=== PATIENT | female | born 1955 | race Caucasian/White ===

== ENCOUNTER → 2021-01-18 | Day surgery (SDC) | payer MEDICARE, OTHER ==
[~2021-01-18] VITALS: Ht 162.6 cm; Wt 99.8 kg
[~2021-01-18] MED LIST: ACETAMINOPHEN325 MG PO; AMITRIPTYLINE 550 MG PO; AMITRIPTYLINE H25 MG PO; ASPIR 8181 MG PO; ASPIRIN EC325 MG PO; ATORVASTATIN CA40 MG PO; CERTAGEN1 EACH PO; CILOSTAZOL100 MG PO; COREG 3.125M3.125 MG PO; EFFIENT10 MG PO; FEOSOL325 MG PO; FLEXERIL10 MG PO; IBUPROFEN800 MG PO; LASIX20 MG PO; LAXATIVE OF CHOICE PO; LEG CRAMPS PO; MIRAPEX1 MG PO; NEURONTIN800 MG PO; NEXIUM40 MG PO; NORCO 5-325 TA1 EACH PO; NORVASC5 MG PO; NOVOLOG100 UNIT/1; OXYCODONE-ACET1 EAC1 PO; PERCOCET 10-321 EACH PO; PERCOCET 5-3251 EACH PO; PREDNISONE 20MG20 MG PO; PRINIVIL20 MG PO; RYBELSUS14 MG PO; SYNTHROID150 MCG PO; TRICOR145 MG PO; TUMS500 MG PO; XARELTO10 MG PO
[2021-01-18 12:04] LABS: BUN/CREAT RATIO (CALC) 15.3 RATIO; CREATININE 0.59 mg/dL (0.51-0.95); POTASSIUM 3.5 mmol/L (3.5-5.1)
== END | disposition home or self-care (01) ==
LOC: FAS 11:04
PROVIDERS: Anesthesiology
DX: G89.4 Chronic pain syndrome (principal); G90.521 Complex regional pain syndrome I of right lower limb; E11.9 Type 2 diabetes mellitus without complications; E03.9 Hypothyroidism, unspecified; Z96.651 Presence of right artificial knee joint
CPT/HCPCS: 36415; 80048; 82962; 93005; C1897; J0690; J1100; J2001; J2250; J3010; J7120

== ENCOUNTER 2021-04-26 10:12 | Emergency (ER) | payer MEDICARE, OTHER ==
[2021-04-26] MEDS ORDERED: PREDNISONE 20MG20 MG PO (11:52)
[2021-04-26] MEDS ORDERED: REFRESH PLUS1 EACH EYELF (11:59)
== END 2021-04-26 12:20 | disposition home or self-care (01) ==
LOC: FER 10:12
DX: G51.0 Bell's palsy (principal); I10 Essential (primary) hypertension; E11.9 Type 2 diabetes mellitus without complications; I25.2 Old myocardial infarction; I25.10 Atherosclerotic heart disease of native coronary artery without angina pectoris; F17.210 Nicotine dependence, cigarettes, uncomplicated
CPT/HCPCS: 70450; 70551; J7512